=== PATIENT | female | born 1935 | race Caucasian/White ===

== ENCOUNTER → 2016-04-28 | Outpatient (CLI) | payer MEDICARE ==
[~2016-04-28] MED LIST: 3N1 COMMODE MC; ASPI-781 PO; GINKGO PO; MULTI VITAMIN PO; OXY5 PO; ULT50 PO; VITAMIN B12 1000 MCG PO; VITAMIN D3 PO; WALK1EAC23 MC
--- NOTE | 2016-04-28 12:18 | RADRPT ---
PROCEDURE: XR left knee. CLINICAL INDICATION: Knee pain TECHNIQUE: AP weightbearing, PA weightbearing, lateral weight bearing and sunrise views are availa ble for review. COMPARISON: None available FINDINGS: There is moderate to severe osteoarthrosis involving the lateral tibial femoral compartment and mosley llofemoral compartment. This is associated with joint space narrowing, subchondral sclerosis and ost eophytosis. There is otherwise normal mineralization, architecture and alignment. No fractures are identified. No osseous lesions are identified. The soft tissues are unremarkable. IMPRESSION: Moderate to severe osteoarthrosis involving the lateral tibial femoral compartment and patellofemora l compartment. RPTAT: HGDB .Kedar Mayberry MD, Date Time Electronically viewed and signed by .Kedar Mayberry MD, on 04/28/2016 12:18 .B/
--- NOTE | 2016-04-28 12:39 | RADRPT ---
PROCEDURE: XR bilateral hips. CLINICAL INDICATION: Hip pain TECHNIQUE: AP pelvis/AP and lateral views of the right and left hips available for review. COMPARISON: No prior studies are available for comparison. FINDINGS: There are bilateral total hip replacements. There is normal mineralization, architecture and alignment. There is no evidence of loosening of th e prosthesis. No fractures, dislocation or osseous lesions are identified. The joints are unremark able. There are normal soft tissues. IMPRESSION: Bilateral total hip replacements. Otherwise unremarkable examination. RPTAT: HGDB .Kedar Mayberry MD, MD Date Time Electronically viewed and signed by .Kedar Mayberry MD, MD on 04/28/2016 12:39 .B/
== END | disposition home or self-care (01) ==
LOC: HKI 10:44
PROVIDERS: ATTEND Orthopaedic Surgery
DX: M17.12 Unilateral primary osteoarthritis, left knee (principal); M21.062 Valgus deformity, not elsewhere classified, left knee; Z96.653 Presence of artificial knee joint, bilateral
CPT/HCPCS: 73523; 73564; G0463

== ENCOUNTER → 2016-06-04 | Outpatient (CLI) | payer MEDICARE ==
[~2016-06-04] MED LIST changes: -OXY5 PO; +OXYC-481 PO; +TRAM50TA2 PO; -ULT50 PO
--- NOTE | 2016-06-06 10:18 | RADRPT ---
PROCEDURE: Limited x-ray of both lower extremities. CLINICAL INDICATION: Bilateral leg pain. TECHNIQUE: Single frontal view of both lower extremities was obtained from the hips to the calves. COMPARISON: Left knee radiographs dated 04/28/2016. Bilateral hip radiographs dated 04/28/2016. FINDINGS: There are bilateral total hip arthroplasties. The right knee is grossly normal. There are severe d egenerative changes of the left knee with valgus deformity. IMPRESSION: 1. Bilateral total hip arthroplasties. 2. Severe degenerative changes of the left knee with valgus deformity. RPTAT: QQ .Julius Malave MD, MD Date Time Electronically viewed and signed by .Julius Malave MD, MD on 06/06/2016 10:18 .R/
== END | disposition home or self-care (01) ==
LOC: HKI 10:31
PROVIDERS: ATTEND Orthopaedic Surgery
DX: Z01.818 Encounter for other preprocedural examination (principal); M17.12 Unilateral primary osteoarthritis, left knee; Z96.643 Presence of artificial hip joint, bilateral
CPT/HCPCS: 77073; G0463

== ENCOUNTER 2016-06-10 07:31 | Inpatient (IN) | payer MEDICARE ==
[2016-06-09 14:32] VITALS: BMI 19.5
--- NOTE | 2016-06-09 17:15 | PREOPHP ---
DATE OF ADMISSION: 06/10/2016 STAFF SURGEON: Homer Sinclair MD CHIEF COMPLAINT: Left knee pain. HISTORY OF PRESENT ILLNESS: The patient has been having pain in her left knee for many months. She has been taking Tylenol and other medications for this which help somewhat, but did not alleviate t he pain. The patient is unable to do her normal activities including walking any length. She has be en seen by orthopedics and told that she has bone on bone and is planning on having a left knee repl acement. The patient has had multiple surgeries in the past with no problems, but there is a family history of malignant hypertension in a grandchild and in a niece. The patient has never had any pr oblems herself. The patient is otherwise doing well. PAST MEDICAL HISTORY: Positive for left breast cancer treated with lumpectomy and radiation. Histo ry of COPD, and a history of blood clot postop hip replacement. PAST SURGICAL HISTORY: Positive for left lumpectomy, tonsillectomy, breast biopsy benign twice, rig ht hip replacement 2014, left hip replacement 2015. ALLERGIES: NO TRUE ALLERGIES, BUT IBUPROFEN CAUSES DEPRESSION AND NAPROSYN CAUSES GI UPSET. HABITS: The patient quit tobacco 2004. She has 2 shots of Vodka per day. GYNECOLOGIC HISTORY: The patient is 2 para 2 and is menopausal. MEDICATIONS: 1. Vitamin D 3000. 2. B12 1000 twice a day. 3. Aspirin 1 daily. NOTE: All these have been stopped in preparation for surgery. FAMILY HISTORY: Positive for father dying with stroke at 87. Mother of heart failure at 94. One brother had a myelofibrosis and at 78. There is as noted above a grandchild and a niece wi th malignant hyperthermia related to surgery. REVIEW OF SYSTEMS: The patient denies fevers, chills, sweats, ear pain, eye pain, sore throat, diff iculty swallowing, headaches, double vision, slurred speech, confusion, bruising or bleeding problem s, hoarseness, balance problems, chest pain, cough, orthopnea, PND, ankle swelling, stomach pain, na usea, vomiting, diarrhea, blood in the stools, black tarry stools, change in bowel habits, vaginal s potting or bleeding, anxiety, depression, suicidal thoughts, swollen joints, fatigue and muscle pain . PHYSICAL EXAMINATION: VITAL SIGNS: Weight 139 pounds, blood pressure 130/80, pulse 66, respirations 12, height 68.5 inches . HEENT: Oral cavity without erythema. NECK: Supple, thyroid not enlarged, nontender, no JVD or carotid bruits. LUNGS: Clear to auscultation and percussion. BACK: Without tenderness to palpation along the spine at the costovertebral angle. HEART: Regular rate and rhythm, no murmurs, no S3, no S4. BREAST: Without masses or axillary adenopathy with some radiation changes in the left breast. ABDOMEN: Bowel sounds present. Liver not enlarged, spleen appreciated, no masses detected. EXTREMITIES: Without pretibial edema. NEUROLOGIC: Cranial nerves III, IV, V, VII, XI and XII intact. Pulses have +2 carotid, +2 , +2 dorsal bilaterally. The patient is alert and coherent. Her gait is normal. There are palpable crackles in both knees. ASSESSMENT: The patient is clear for surgery. NOTE: The patient has had a history of blood clot following hip surgery and there is a family histo ry of malignant hyperthermia in 2 blood relatives. PLAN: 1. Blood work, EKG and chest x-ray. 2. The patient has stopped all medications in preparations for surgery. Dr. Lobito Otoole dictating for Dr. Sinclair Dictated By: HOMER DECKER/LUIS Conf#: [id number] DID#: [id number]
[~2016-06-10] VITALS: Ht 175.3 cm; Wt 63.5 kg
[2016-06-10] VITALS (28 sets, daily range): BP systolic 89–116; BP diastolic 47–67; PULSE 60–100; RESP 9–19; Ht 175.3 cm; Wt 63.5 kg
[~2016-06-10 07:31] MED LIST changes: +CEFAZOLIN 1 GM INJ ONE; +EPHEDrine SULFATE 50 MG/5 ML SYG ONE
[2016-06-10] MEDS ORDERED: traMADOL 50 MG TAB X 1 DOSE PO ONE (09:00)
[2016-06-10] MEDS: LACTATED RINGER'S 1,000 ML IV SCH ×4 (09:00→21:53)
[2016-06-10] MEDS ORDERED: CELECOXIB 400 MG PO X1 DOSE PO ONE (09:00)
[2016-06-10] MEDS ORDERED: oxyCODONE (CR) 10 MG TAB [oxyCONTIN] X1 DOSE PO ONE (09:00)
[2016-06-10] MEDS ORDERED: PREGABALIN 300 MG PO X1 PO ONE (09:00)
[2016-06-10] MEDS ORDERED: TRANEXAMIC ACID 600 MG in SOD CHLORIDE 0.9% 94 ML IV ONE (09:00)
[2016-06-10] MEDS ORDERED: CEFAZOLIN 2GM/50 ML (PMX) 50 ML X1 BEFORE INCISION IVPB ONE (09:00)
[2016-06-10] MEDS ORDERED: BUPIVACAINE LIPOSOME/PF 266 MG/20 ML VIAL INFIL SCH (10:30)
[2016-06-10] MEDS ORDERED: TRANEXAMIC ACID 600 MG in SOD CHLORIDE 0.9% 100 ML IVPB SCH (10:30)
[2016-06-10] MEDS ORDERED: EXPAREL NOTE (BUPIVICAINE LIPOSOMAL) XX SCH (10:30)
--- NOTE | 2016-06-10 10:30 | HPN ---
Date/Time of Note Date/Time of Note DATE: 06/10/16 TIME: 10:29 Interval H&P Admission Note Pt. seen H&P reviewed: No system changes No change from H&P dated 05/27/[address] Lobito ARGUELLES,ZULEMA Maldonado MD Jun 10, 2016 10:30
[2016-06-10] MEDS ORDERED: ONDANSETRON 4 MG INJ ONE (10:52)
[2016-06-10] MEDS ORDERED: DEXAMETHASONE 4 MG/ML 1 ML INJ ONE (10:52)
[2016-06-10] MEDS ORDERED: PROPOFOL 100 ML ONE (10:52)
[2016-06-10] MEDS ORDERED: MIDAZOLAM 1 MG/ML 2 ML INJ ONE (10:52)
[2016-06-10] MEDS ORDERED: METOCLOPRAMIDE 10 MG INJ ONE (10:52)
[2016-06-10] MEDS ORDERED: FENTAnyl 50 MCG/ML VIAL ONE (11:15)
[2016-06-10] MEDS ORDERED: POLYMYXIN B 500000 UNIT INJ ONE (11:37)
[2016-06-10] MEDS ORDERED: SODIUM CL BACTERIOSTATIC 30 ML INJ ONE (11:37)
[2016-06-10] MEDS ORDERED: VANCOMYCIN 1 GM INJ ONE (11:37)
[2016-06-10] MEDS: PAIN COCKTAIL-CEFUROXIME IRR SCH ×7 (12:36)
[2016-06-10] MEDS ORDERED: PROPOFOL 20 ML ONE (12:57)
[2016-06-10] MEDS ORDERED: METOCLOPRAMIDE 10 MG INJ IV PRN (13:00)
[2016-06-10] MEDS ORDERED: HYDROmorphONE (0.2 MG/ML) 10ML SYG IV PRN ×3 (13:00)
[2016-06-10] MEDS ORDERED: ONDANSETRON 4 MG INJ IV PRN ×2 (13:00→14:00)
[2016-06-10] MEDS ORDERED: MEPERIDINE 25 MG INJ IV PRN (13:00)
[2016-06-10] MEDS ORDERED: DIPHENHYDRAMINE 50 MG INJ IV PRN (13:00)
--- NOTE | 2016-06-10 13:59 | OPPN ---
Date/Time of Note Date/Time of Note DATE: 06/10/16 TIME: 13:58 Operative/Procedure Note Dictation # [id number] Pre-Operative Diagnosis Left Knee OA Post-Operative Diagnosis Same Procedure Left TKA Surgeon: ZULEMA ARGUELLES MD Bodybuilder: ZANE GALLO PA-C Anesthesiologist: RANDY ASHLEY MD Findings Severe OA Blood Usage/Administration None Implants/Grafts Depuy Attune TKA Estimated blood loss: 50 - 100 ml's Drains Hemovac x 1 Specimens Bone and soft tissue Complications: None Anesthesia type: spinal ZULEMA ARGUELLES MD Jun 10, 2016 13:59
[2016-06-10] MEDS ORDERED: MAGNESIUM HYDROXIDE 30ML CUP PO PRN (14:00)
[2016-06-10] MEDS ORDERED: BISACODYL 10 MG SUPP PR PRN (14:00)
[2016-06-10] MEDS ORDERED: NA PHOSPHATE/BIPHOS 133 ML ENEMA PR PRN (14:00)
[2016-06-10] MEDS ORDERED: DIPHENHYDRAMINE 25 MG CAP PO PRN (14:00)
[2016-06-10] MEDS ORDERED: HYDROmorphONE 1 MG/ML SYG IV PRN (14:00)
[2016-06-10] MEDS ORDERED: NACL 0.9% 3 ML SYG IV SCH (14:00)
[2016-06-10] MEDS ORDERED: oxyCODONE 5 MG TAB PO PRN ×2 (14:00)
[2016-06-10 14:14] LABS: HEMATOCRIT 35.4 % (37.0-47.0)
--- NOTE | 2016-06-10 14:15 | OPR ---
DATE OF OPERATION: 06/10/2016 PREOPERATIVE DIAGNOSIS: Left knee osteoarthritis. POSTOPERATIVE DIAGNOSIS: Left knee osteoarthritis. OPERATION PERFORMED: Left total knee arthroplasty. SURGEON: Homer Sinclair MD QA AUDITOR: BRAIN Blake COMPONENTS USED: DePuy Attune size 6 narrow femoral component, size 6 tibial base plate, 7-mm polyethylene insert, and a 35 patellar button. ANESTHESIA: Spinal plus general endotracheal intubation, plus periarticular injection. ANESTHESIOLOGIST: Dr. Floyd. TOURNIQUET TIME: 67 minutes. ESTIMATED BLOOD LOSS: 50 mL. INTRAVENOUS FLUIDS: 2 liters crystalloid. SPECIMENS: Bone and soft tissue. DRAINS: Hemovac x1. COMPLICATIONS: None. DISPOSITION: The patient tolerated the procedure well and was taken to the recovery room in stable condition. INDICATIONS: The patient is a 80-year-old woman who has had progressive worsening pain in the left knee with radiographic evidence of severe osteoarthritis. She has failed nonsurgical means of treatment to control her pain including activity modifications, pain medications, intra-articular injections, and ambulatory assist devices. Despite these measures, she has had worsening pain, and I felt she would benefit from a total knee arthroplasty. The risks, benefits, and alternatives of the procedure were explained in detail to the patient. I explained the risks of the surgery to include but not be limited to, bleeding and possible need for blood transfusion; infection; pain; stiffness; neurovascular injury with possible numbness, weakness, and/or paralysis anywhere from the knee down to the toes; fracture; instability; dislocation; wear and/or loosening of the prosthesis and possible need for future revision; blood clots; pulmonary embolism; and anesthetic complications such as heart attack, stroke, GI bleed, pneumonia, and/or . Ample time was allowed for the patient to ask questions, all of which were addressed and answered. The patient understood the risks involved and wished to proceed. Informed consent was signed prior to the procedure. APPROACH: Median parapatellar arthrotomy. cut down consent was signed prior to the procedure. Valgus cut was 5 degrees. The extension gap was checked and accommodated the 7-mm spacer block. The flexion gap was checked and accommodated the 7-mm spacer block. The patella was cut from 20 mm down to 13 mm and sized. PROCEDURE: The patient's left knee was initialed with a marking pen in the preoperative area to identify the correct operative site. The patient was brought to the [facility] where a spinal anesthetic was administered. The patient was then anesthetized and intubated. A Luz catheter was placed. A timeout was performed to confirm that the left leg was the correct operative site. The patient was given 2 g of Ancef within one hour prior to the procedure. A tourniquet was placed on the operative proximal thigh. The operative knee and lower extremity were prepped and draped in the usual sterile fashion. The operative lower extremity was elevated and exsanguinated with an Esmarch tourniquet. The proximal thigh tourniquet was inflated to 300 mmHg. The knee was flexed. A midline incision was made and carried down through the subcutaneous tissue and fat with sharp dissection. Limited medial and lateral flaps were raised. A left approach was performed. Synovial fluid was normal in color and consistency. The patella was everted and the knee flexed. There were severe tricompartmental osteoarthritic changes noted. A medial release was performed at the joint line to the midcoronal plane. The ACL and PCL and remnants of the menisci were excised. The stepped drill was used to open up the femoral canal which was irrigated and sucked dry. The intramedullary guide christian was passed up the femur, and the distal cutting block was pinned into place for a 5-degree valgus cut, taking 10 mm of bone off distally. The oscillating saw was used to make the cut. The tibia was subluxed anteriorly. The tibial cutoff jig was placed over the center of the talus distally and over the junction of the medial and middle third of the tibial tubercle proximally. The guide was pinned into place and the oscillating saw was used to make the cut. The tibia was sized. The extension gap was checked and accommodated a 7-mm spacer block with the knee in full extension. There was no varus or valgus instability. At this point, the femur was sized with the posterior referencing guide. Two holes were drilled in 3 degrees of external rotation. The two holes were in line with the transepicondylar axis, perpendicular to [place]'s line, and in line with the tibial cutoff jig brought up with the knee flexed 90 degrees and tensed with 2 lamina spreaders, suggesting the femoral rotation was correct. The four-in-one cutting block was pinned into place. The anterior and posterior cuts and chamfer cuts were made with the oscillating saw. The flexion gap was checked and accommodated the 7-mm spacer block at 90 degrees. There was no varus or valgus instability, suggesting the flexion and extension gaps were now equal. The central box was cut out on the femur. The tibia was drilled and punched in proper rotation. Trial components were placed into position with a trial insert. The patella was cut down to 7 mm and sized. Three holes were drilled and the trial button placed in position. With all the trials now in place, the knee was taken through range of motion and came to full extension as evidenced by the fact that with the foot on my abdomen and axial loading, there was no tendency for the knee to flex. The knee was able to be flexed to 125 degrees with good patellar tracking with no lateral tilt or subluxation. At this point, I was satisfied with the overall range of motion, stability, and patellar tracking. The trials were removed. The real components were opened. Two bags of cement were mixed, one with and one without premixed antibiotic. The knee was irrigated with antibiotic saline and sucked dry. Once the cement was in a doughy stage, the real components were cemented into place. The knee was held in full extension, and the patellar component was held with a patellar clamp. All excess cement was removed with curettes. As the cement was hardening, the synovial/capsular layer was infiltrated with a mixture of 150 mg of 0.5% Bupivacaine, 8 mg of Duramorph, 300 mcg of epinephrine, 30 mg of Toradol, 100 mcg of clonidine, 750 mg of cefuroxime and 86 mL of normal saline, followed by an injection of 266 mg of liposomal Bupivacaine. A Hemovac drain was placed in the deep portion of the wound and brought out the anterolateral thigh. Once the cement was completely hardened, the trial liner was removed, and the real insert was opened. The tourniquet was let down, and there was good hemostasis. The knee was then irrigated with a mixture of Betadine/saline and then antibiotic saline with pulsatile lavage. The real insert was impacted into the tibia and reduced onto to the femur. The arthrotomy was closed with a few interrupted #1 Ethibond in a figure-of- eight fashion, and then closed in a watertight fashion with a running #2 Stratafix suture. Knee flexion was checked against gravity and came to 125 degrees. The subcutaneous layer was irrigated and closed with 2-0 Stratafix, and then 3-0 Stratafix and then Prineo Dermabond on the skin. The wound was covered with an occlusive dressing, and secured with cast padding and a bias dressing. The drain was secured with 3-0 nylon. The sponge and needle counts were correct at the end of the case. The patient was then awakened, extubated, and taken to the recovery room in stable condition. Dictated By: HOMER DECKER/NTS Conf#: [id number] DID#: [id number] MTDD
--- NOTE | 2016-06-10 14:19 | RADRPT ---
PROCEDURE: XR left knee. CLINICAL INDICATION: Knee pain. TECHNIQUE: AP and lateral views are available for review. COMPARISON: No comparison available FINDINGS: There is a postoperative total knee replacement. There is no evidence of loosening of the prosthesis . The osseous structures are normal in mineralization, architecture and alignment No acute fracture or dislocation is seen.No osseous lesions are identified. There are postoperative soft tissue olguin es. A drain is in place . IMPRESSION: Unremarkable postoperative total knee replacement. Postoperative soft tissue changes RPTAT: HGDB .Kedar Mayberry MD, MD Date Time Electronically viewed and signed by .Kedar Mayberry MD, on 06/10/2016 14:18 .B/
[2016-06-10 14:23] LABS: CREATININE 0.63 mg/dl (0.44-1.00); POTASSIUM 4.7 mmol/L (3.5-5.1)
[2016-06-10 14:24] LABS: CALCIUM 8.9 mg/dl (8.4-10.2)
--- NOTE | 2016-06-10 14:25 | PN ---
Date/Time of Note Date/Time of Note DATE: 06/10/16 TIME: 14:23 Assessment/Plan Lines/Catheters IV Catheter Type (from Nrsg): Peripheral IV Assessment/Plan Assessment/Plan Stable in PACU, s/p left TKA -cont abx -pain meds -Coumadin 2.5mg at 1700 ONCE today -SCDs for DVT prophylaxis -OOB with PT -monitor drain -check AM labs including INR -d/c ho in AM XR of the left knee shows good alignment with no evidence of fracture or dislocation Subjective 24 Hr Interval Summary Stable in PACU. Moving all extremities. Denies any pain. Mildly lethargic from anesthesia. Exam/Review of Systems Vital Signs Vitals Vital Signs Date Time Temp Pulse Resp B/P Pulse Ox O2 Delivery O2 Flow Rate FiO2 06/10/16 13:53 98.1 06/10/16 13:51 86 16 102/58 96 Nasal Cannula Exam Free Text/Dictation Dressing dry Incision clean, dry, and intact without redness or drainage Thigh soft 5/5 Quadriceps, Tibialis Anterior, EHL, Gastroc, Soleus, Peroneals Normal sensation Palpable DT/PT, CR <2 sec No distal edema Results Result Diagram: 06/10/16 1402 ZANE GALLO PA-C Jun 10, 2016 14:25
[2016-06-10] MEDS: CEFAZOLIN 2 GM/50 ML (PMX) 50 ML IVPB SCH ×2 (14:26→22:06)
--- NOTE | 2016-06-10 16:48 | CONS ---
DATE OF ADMISSION: 06/10/2016 DATE OF CONSULTATION: 06/10/[address] Sinclair: Thank you very much for allowing me to evaluate the above patient, who just underwent left knee repl acement. HISTORICAL EVENTS: Because of progressive pain involving her left knee, the patient sought help fro avi matthews, and she elected to proceed with your recommended surgery. Postoperatively, on the orthopedic floor, she is comfortable without cough, wheezing, shortness of breath, nausea, vomiting, abdominal or chest pain. PAST MEDICAL HISTORY: Includes: 1. Breast cancer treated with radiation and lumpectomy. 2. History of COPD. 3. Right hip replacement and left hip replacement in 2014 and 2015, respectively. 4. History of a "blood clot" postop hip replacement. ALLERGIES OR INTOLERANCES: Include: 1. Ibuprofen. 2. Naprosyn. SOCIAL: She does drink 2 shots of vodka per day. MEDICATIONS: Vitamin D3 at 3000 per day, B12 at 1000 mcg twice a day, aspirin 81 per day. FAMILY HISTORY: Positive for heart failure, myelofibrosis, history of malignant hyperthermia. PHYSICAL EXAMINATION: GENERAL: [place] female, in no acute distress. VITAL SIGNS: BP 122/80, pulse 70, respirations are 20, she was afebrile. EYES: Extraocular muscles were full. NOSE, MOUTH, AND THROAT: Normal. NECK: Supple. There was no jugular venous distention, thyroid enlargement, or adenopathy. Carotid s 2+. LUNGS: Clear. HEART: Rhythm regular, no murmur. No third or fourth sound. ABDOMEN: Nontender. Liver and spleen were not palpable. No masses or tenderness were noted. EXTREMITIES: No edema, no calf tenderness. NEUROLOGIC: No lateralizing motor weakness. IMPRESSION: 1. Postop left knee replacement, stable. 2. History of deep venous thrombosis, agree with your beginning Coumadin. 3. Vitamin D deficiency. Will continue Vitamin D3 as she has been taking at home. Dictated By: GINA RONQUILLO MD MR/NTS Conf#: [id number] DID#: [id number]
[2016-06-10] MEDS ORDERED: TRANEXAMIC ACID IVPB ONE ×2 (17:00→20:00)
[2016-06-10] MEDS ORDERED: WARFARIN 2.5 MG TAB PO ONE (17:00)
[2016-06-10] MEDS ORDERED: SOD CHLORIDE 0.9% IVPB ONE ×2 (17:00→20:00)
[2016-06-10] MEDS: PANTOPRAZOLE (EC) 40 MG TAB PO SCH (17:30)
[2016-06-10] MEDS: traMADol 50 MG TAB PO SCH (17:31)
[2016-06-10] MEDS: ACETAMINOPHEN 1000MG/100ML IV 100 ML IVPB SCH (18:16)
[2016-06-10] MEDS: PREGABALIN 25 MG CAP PO SCH (21:07)
[2016-06-10] MEDS: DOCUSATE SODIUM 100 MG CAP PO SCH (21:07)
[2016-06-11] VITALS: BP 96/51; PULSE 63; RESP 18
[2016-06-11] MEDS: ACETAMINOPHEN 1000MG/100ML IV 100 ML IVPB SCH ×3 (00:31→12:07)
[2016-06-11] MEDS: traMADol 50 MG TAB PO SCH ×5 (00:32→23:51)
[2016-06-11] MEDS ORDERED: TRANEXAMIC ACID IVPB ONE (02:00)
[2016-06-11] MEDS ORDERED: SOD CHLORIDE 0.9% IVPB ONE (02:00)
[2016-06-11] MEDS: LACTATED RINGER'S 1,000 ML IV SCH ×5 (04:57→21:53)
[2016-06-11 05:37] LABS: HEMATOCRIT 32.5 % (37.0-47.0)
[2016-06-11 06:00] VITALS: BP 108/56; PULSE 64; RESP 18
[2016-06-11 06:01] LABS: INR 1.08; PT RATIO 1.1
[2016-06-11] MEDS: PANTOPRAZOLE (EC) 40 MG TAB PO SCH ×2 (06:10→17:54)
[2016-06-11 06:19] LABS: CREATININE 0.62 mg/dl (0.44-1.00)
[2016-06-11 06:20] LABS: CALCIUM 8.7 mg/dl (8.4-10.2)
[2016-06-11] MEDS: CEFAZOLIN 2 GM/50 ML (PMX) 50 ML IVPB SCH (06:43)
--- NOTE | 2016-06-11 07:41 | PDOCDIS ---
Discharge Instructions DIAGNOSIS Discharge Diagnosis: s/p left TKA CONDITION Patient Condition: Good HOME CARE INSTRUCTIONS: Diet Instructions: RegularSpecial Diet: avoid green leafy vegetables ACTIVITY: Activity Restrictions: Slowly Increase Activity Rest between Activity Avoid heavy lifting Do not operate Machinery Do not operate Power Tool Avoid Heavy Housework Keep Limb Elevated Bathing Restrictions: Shower FOLLOW UP/APPOINTMENTS Appointments follow up in the office on 06/21/16 OTHER ORDERS: Other Orders: Physical Therapy: Three times per week at home x 3 weeks Daily in Rehab/SNF (if applicable) WB STATUS: WBAT 1. Strengthening exercises for both upper and un-operated lower extremities. 2. Gait training with front wheeled walker 3. Active range of motion exercises to operative knee. 4. When not working on knee range of motion exercises, distal towel roll under operative ankle/distal calf to promote full extension. 5. DO NOT PUT ANYTHING BEHIND OPERATIVE KNEE!!! 6. Quadriceps and hamstring strengthening. 7. May switch to cane in contra lateral hand 6 weeks after surgery. 8. Physical Therapy can open case if nursing is not available. 9. Use Ice Machine as instructed from date of surgery while at rest 3X/day. 10. Patient requires mobile SCDs to reduce risk of developing DVT following TKA. Patient will use the mobile SCDs for 30 days postoperatively. Bathing assistance by home health aide twice weekly if Medicare patient. Occupational Therapy: Evaluation for assistive devices and ADL training. Wound Care: Keep incision dry & covered with Tegaderm until first visit with Dr. Sinclair Anticoagulation Orders: Adjusted Coumadin dose x 3 weeks from the date of surgery. Target INR 1.7-2.0. Prothrombin time & INR are done every Tuesday and for three weeks post- operatively. Please call and leave a message with Rae @ [phone] with results the same day before the close of business. The patient should not eat green leafy vegetables. Follow-up: Call for an appointment with Dr. Sinclair in 1 week after discharged from hospital at . DME Orders: FWW, 3-in-1 Commode, Polar ice machine, Mobile SCDs ZANE GALLO PA-C Jun 11, 2016 07:41
[2016-06-11] MEDS ORDERED: LYRI25 PO (07:43)
[2016-06-11 07:55] VITALS: BP 104/58; RESP 18
--- NOTE | 2016-06-11 08:16 | PN ---
Date/Time of Note Date/Time of Note DATE: 06/11/16 TIME: 08:14 Assessment/Plan Lines/Catheters IV Catheter Type (from Nrsg): Peripheral IV Luz in Place (from Nrsg): Yes Assessment/Plan Assessment/Plan Stable POD #1, s/p left TKA -d/c abx -pain meds -coumadin 2.5mg at 1700 TODAY -SCDs for DVT prophylaxis -check AM labs including INR -OOB with PT -d/c planning. Possible discharge home tomorrow Subjective 24 Hr Interval Summary Doing well. No acute overnight events. Denies any pain. Did not start PT yesterday. VSS, afebrile. Exam/Review of Systems Vital Signs Vitals Vital Signs Date Time Temp Pulse Resp B/P Pulse Ox O2 Delivery O2 Flow Rate FiO2 06/11/16 07:55 97.4 57 18 104/58 99 06/11/16 06:00 Room Air 2.0 Intake and Output 06/10/16 06/10/16 06/11/16 15:00 23:00 07:00 Intake Total 2000 ml 1956.4 ml 1536.4 ml Output Total 340 ml 800 ml 1230 ml Balance 1660 ml 1156.4 ml 306.4 ml Exam Free Text/Dictation Hemovac: 270cc Dressing dry Incision clean, dry, and intact without redness or drainage Thigh soft 5/5 Quadriceps, Tibialis Anterior, EHL, Gastroc, Soleus, Peroneals Normal sensation Palpable DT/PT, CR <2 sec No distal edema Results Result Diagram: 06/11/16 0455 06/11/16 0455 ZANE GALLO PA-C Jun 11, 2016 08:16
--- NOTE | 2016-06-11 08:43 | CONS ---
Date/Time of Note Date/Time of Note DATE: 06/11/16 TIME: 08:42 Assessment/Plan Assessment/Plan Additional Assessment/Plan 1. Postop left knee replacement, stable. 2. History of deep venous thrombosis, receiving coumadin 3. Vitamin D deficiency, D3 continued Consultation Date/Type/Reason Admit Date/Time Jun 10, 2016 at 07:31 Initial Consult Date Detailed Summary Respiratory: No cough, No shortness of breath Cardiovascular: No chest pain Gastrointestinal: no complaints Genitourinary: no complaints Musculoskeletal: bone/joint pain (mild left knee discomfort) Exam/Review of Systems Vital Signs Vitals Vital Signs Date Time Temp Pulse Resp B/P Pulse Ox O2 Delivery O2 Flow Rate FiO2 06/11/16 07:55 97.4 57 18 104/58 99 06/11/16 06:00 Room Air 2.0 Intake and Output 06/10/16 06/10/16 06/11/16 15:00 23:00 07:00 Intake Total 2000 ml 1956.4 ml 1536.4 ml Output Total 340 ml 800 ml 1230 ml Balance 1660 ml 1156.4 ml 306.4 ml Exam Neck: No jvd Respiratory: clear to auscultation Cardiovascular: regular rate and rhythm Gastrointestinal: soft Extremities: No edema (and no calf tend bilat) Results Result Diagram: 06/11/16 0455 06/11/16 0455 Results 24 hrs Laboratory Tests Test 06/10/16 14:02 06/11/16 04:55 Anion Gap 13 14 Blood Urea Nitrogen 14 16 Calcium Level 8.9 8.7 Carbon Dioxide Level 26 27 Chloride Level 104 105 Creatinine 0.63 0.62 Glucose Level 147 117 Hematocrit 35.4 #L 32.5 L Hemoglobin 12.0 # 11.0 L Potassium Level 4.7 5.0 Sodium Level 138 141 INR International Normalized Ratio 1.08 Prothrombin Time 14.0 Prothrombin Time Ratio 1.1 Medications Medications Current Medications Lactated Ringer's (Lr) 1,000 ml @ 100 mls/hr Q10H IV ; Start 06/10/16 at 09:00 Bupivacaine Liposome (Exparel 266 Mg/ 20 ml Vial) 266 mg INTRA-OP INFIL Last administered on 06/10/16t 12:36; Admin Dose 266 MG; Start 06/10/16 at 10:30; Stop 06/14/16 at 10:29 Miscellaneous Information 1 ea 1 ea NOTE XX ; Start 06/10/16 at 10:30; Stop at 10:29 Lactated Ringer's (Lr) 1,000 ml @ 125 mls/hr Q8H IV Last administered on 04:57; Admin Dose 125 MLS/HR; Start 06/10/16 at 13:53 Celecoxib 200 mg 200 mg DAILY PO ; Start 06/11/16 at 09:00 Acetaminophen (Ofirmev 1000mg/ 100ml Iv) 100 ml @ 400 mls/hr Q6 IVPB Last administered on 06/11/16 06:10; Admin Dose 400 MLS/HR; Start 06/10/16 at 18:00 ; Stop 06/11/16 at 17:59 Tramadol HCl (Ultram) 50 mg Q6 PO Last administered on 06/11/16 06:11; Admin Dose 50 MG; Start 06/10/16 at 18:00; Stop 06/13/16 at 17:59 Oxycodone HCl (Roxicodone) 5 mg Q4H PRN PO PAIN LEVEL 1-3; Start 06/10/16 at 14 :00 Oxycodone HCl (Roxicodone) 10 mg Q4H PRN PO PAIN LEVEL 4-7; Start 06/10/16 at 14:00 Hydromorphone HCl (Dilaudid) 1 mg Q3H PRN IV PAIN LEVEL 8-10; Start 06/10/16 at 14:00 Ondansetron HCl (Zofran Inj) 4 mg Q6H PRN IV NAUSEA AND/OR VOMITING; Start at 14:00 Bisacodyl (Dulcolax Supp) 10 mg Q12H PRN [place] CONSTIPATION; Start 06/10/16 at 14: 00 Magnesium Hydroxide (Milk Of Mag) 30 ml BID PRN PO CONSTIPATION; Start at 14:00 Sodium Biphosphate/ Sodium Phosphate (Fleet Enema) 133 ml DAILY PRN [place] CONSTIPATION; Start 06/10/16 at 14:00 Docusate Sodium (Colace) 100 mg BID PO Last administered on 06/10/16 21:07; Admin Dose 100 MG; Start 06/10/16 at 21:00 Diphenhydramine HCl (Benadryl) 25 mg Q6H PRN PO PRURITUS; Start 06/10/16 at 14: 00 Pantoprazole (Protonix Tab) 40 mg BID@18 PO Last administered on 06/11/16 06:10; Admin Dose 40 MG; Start 06/10/16 at 18:00 Pregabalin (Lyrica) 50 mg BID PO Last administered on 06/10/16 21:07; Admin Dose 50 MG; Start 06/10/16 at 21:00 Cholecalciferol (Vitamin D) 3,000 unit DAILY PO ; Start 06/11/16 at 09:00 Cyanocobalamin (Vitamin B12) 1,000 mcg DAILY PO ; Start 06/11/16 at 09:00 Warfarin Sodium (Coumadin) 2.5 mg 17 PO ; Start 06/11/16 at 17:00; Stop at 23:00 GINA RONQUILLO MD Jun 11, 2016 08:43
[2016-06-11] MEDS: CELECOXIB 200 MG CAP PO SCH (08:56)
[2016-06-11] MEDS: PREGABALIN 25 MG CAP PO SCH ×2 (08:57→21:04)
[2016-06-11] MEDS: DOCUSATE SODIUM 100 MG CAP PO SCH ×2 (08:57→21:04)
[2016-06-11] MEDS: CYANOCOBALAMIN 500 MCG TAB PO SCH (08:57)
[2016-06-11] MEDS: CHOLECALCIFEROL 1,000 UNIT TAB PO SCH (08:58)
[2016-06-11 09:13] LABS: ADD UMIC NO; URINE BILIRUBIN (Dip) NEGATIVE (NEGATIVE); URINE BLOOD (Dip) NEGATIVE (NEGATIVE); URINE COLOR LT. YELLOW (YELLOW); URINE GLUCOSE (Dip) NEGATIVE (NEGATIVE); URINE KETONES (Dip) NEGATIVE (NEGATIVE); URINE LEUKOCYTE ESTERASE (Dip) NEGATIVE (NEGATIVE); URINE NITRITE (Dip) NEGATIVE (NEGATIVE); URINE TOTAL PROTEIN (Dip) NEGATIVE (NEGATIVE); URINE UROBILINOGEN (Dip) 0.2 E.U./dL (0.1-1.0)
--- NOTE | 2016-06-11 12:58 | PN ---
Date/Time of Note Date/Time of Note DATE: 06/11/16 TIME: 12:56 Assessment/Plan VTE Prophylaxis VTE Prophylaxis Intervention: SCD's Lines/Catheters IV Catheter Type (from Nrsg): Peripheral IV Urinary Cath still in place: Yes Subjective 24 Hr Interval Summary Free Text/Dictation Anesthesia note: A 80 year female s/p left knee replacemnt POD #1 under TIVA and spinal doing well. no N/V, headache, pain is controlled. no infection or inflammation at back Exam/Review of Systems Vital Signs Vitals Vital Signs Date Time Temp Pulse Resp B/P Pulse Ox O2 Delivery O2 Flow Rate FiO2 06/11/16 07:55 97.4 57 18 104/58 99 06/11/16 06:00 Room Air 2.0 Intake and Output 06/10/16 06/10/16 06/11/16 14:59 22:59 06:59 Intake Total 2000 ml 1956.4 ml 1536.4 ml Output Total 340 ml 800 ml 1230 ml Balance 1660 ml 1156.4 ml 306.4 ml Results Result Diagram: 06/11/16 0455 06/11/16 0455 Results 24 hrs Laboratory Tests Test 06/10/16 14:02 06/11/16 04:55 06/11/16 05:30 Anion Gap 13 14 Blood Urea Nitrogen 14 16 Calcium Level 8.9 8.7 Carbon Dioxide Level 26 27 Chloride Level 104 105 Creatinine 0.63 0.62 Glucose Level 147 117 Hematocrit 35.4 #L 32.5 L Hemoglobin 12.0 # 11.0 L Potassium Level 4.7 5.0 Sodium Level 138 141 INR International Normalized Ratio 1.08 Prothrombin Time 14.0 Prothrombin Time Ratio 1.1 Urine Bilirubin NEGATIVE Urine Clarity CLEAR Urine Color LT. YELLOW Urine Glucose NEGATIVE Urine Hemoglobin NEGATIVE Urine Ketones NEGATIVE Urine Leukocyte Esterase NEGATIVE Urine Nitrite NEGATIVE Urine Specific [place] 1.020 Urine Total Protein NEGATIVE Urine Urobilinogen 0.2 E.U./dL Urine pH 6.0 Medications Medications Current Medications Lactated Ringer's (Lr) 1,000 ml @ 100 mls/hr Q10H IV ; Start 06/10/16 at 09:00 Bupivacaine Liposome (Exparel 266 Mg/ 20 ml Vial) 266 mg INTRA-OP INFIL Last administered on 06/10/16t 12:36; Admin Dose 266 MG; Start 06/10/16 at 10:30; Stop 06/14/16 at 10:29 Miscellaneous Information 1 ea 1 ea NOTE XX ; Start 06/10/16 at 10:30; Stop at 10:29 Lactated Ringer's (Lr) 1,000 ml @ 125 mls/hr Q8H IV Last administered on 04:57; Admin Dose 125 MLS/HR; Start 06/10/16 at 13:53 Celecoxib 200 mg 200 mg DAILY PO Last administered on 06/11/16 08:56; Admin Dose 200 MG; Start 06/11/16 at 09:00 Acetaminophen (Ofirmev 1000mg/ 100ml Iv) 100 ml @ 400 mls/hr Q6 IVPB Last administered on 06/11/16 12:07; Admin Dose 400 MLS/HR; Start 06/10/16 at 18:00 ; Stop 06/11/16 at 17:59 Tramadol HCl (Ultram) 50 mg Q6 PO Last administered on 06/11/16 12:07; Admin Dose 50 MG; Start 06/10/16 at 18:00; Stop 06/13/16 at 17:59 Oxycodone HCl (Roxicodone) 5 mg Q4H PRN PO PAIN LEVEL 1-3; Start 06/10/16 at 14 :00 Oxycodone HCl (Roxicodone) 10 mg Q4H PRN PO PAIN LEVEL 4-7; Start 06/10/16 at 14:00 Hydromorphone HCl (Dilaudid) 1 mg Q3H PRN IV PAIN LEVEL 8-10; Start 06/10/16 at 14:00 Ondansetron HCl (Zofran Inj) 4 mg Q6H PRN IV NAUSEA AND/OR VOMITING; Start at 14:00 Bisacodyl (Dulcolax Supp) 10 mg Q12H PRN [place] CONSTIPATION; Start 06/10/16 at 14: 00 Magnesium Hydroxide (Milk Of Mag) 30 ml BID PRN PO CONSTIPATION; Start at 14:00 Sodium Biphosphate/ Sodium Phosphate (Fleet Enema) 133 ml DAILY PRN [place] CONSTIPATION; Start 06/10/16 at 14:00 Docusate Sodium (Colace) 100 mg BID PO Last administered on 06/11/16 08:57; Admin Dose 100 MG; Start 06/10/16 at 21:00 Diphenhydramine HCl (Benadryl) 25 mg Q6H PRN PO PRURITUS; Start 06/10/16 at 14: 00 Pantoprazole (Protonix Tab) 40 mg BID@06,18 PO Last administered on 06/11/16 06:10; Admin Dose 40 MG; Start 06/10/16 at 18:00 Pregabalin (Lyrica) 50 mg BID PO Last administered on 06/11/16 08:57; Admin Dose 50 MG; Start 06/10/16 at 21:00 Cholecalciferol (Vitamin D) 3,000 unit DAILY PO Last administered on 06/11/16 08:58; Admin Dose 3,000 UNIT; Start 06/11/16 at 09:00 Cyanocobalamin (Vitamin B12) 1,000 mcg DAILY PO Last administered on 06/11/16 08:57; Admin Dose 1,000 MCG; Start 06/11/16 at 09:00 Warfarin Sodium (Coumadin) 2.5 mg 17 PO ; Start 06/11/16 at 17:00; Stop at 23:00 RANDY ASHLEY MD Jun 11, 2016 12:58
[2016-06-11] MEDS ORDERED: WARFARIN 2.5 MG TAB PO SCH (17:00)
[2016-06-11 20:58] VITALS: BP 116/57; RESP 20
[2016-06-12] MEDS: LACTATED RINGER'S 1,000 ML IV SCH ×3 (01:00→11:00)
[2016-06-12 05:11] LABS: HEMATOCRIT 32.4 % (37.0-47.0)
[2016-06-12 05:14] LABS: INR 1.34; PROTIME 16.7 Sec (12.2-14.2); PT RATIO 1.3
[2016-06-12 05:21] LABS: POTASSIUM 4.5 mmol/L (3.5-5.1)
[2016-06-12 05:23] LABS: CREATININE 0.65 mg/dl (0.44-1.00)
[2016-06-12 05:24] LABS: CALCIUM 8.4 mg/dl (8.4-10.2)
[2016-06-12] MEDS: traMADol 50 MG TAB PO SCH ×2 (06:46→12:20)
[2016-06-12] MEDS: PANTOPRAZOLE (EC) 40 MG TAB PO SCH (06:46)
[2016-06-12 08:25] VITALS: BP 124/61; PULSE 85; RESP 16
[2016-06-12] MEDS: CELECOXIB 200 MG CAP PO SCH (08:29)
[2016-06-12] MEDS: DOCUSATE SODIUM 100 MG CAP PO SCH (08:29)
[2016-06-12] MEDS: CYANOCOBALAMIN 500 MCG TAB PO SCH (08:29)
[2016-06-12] MEDS: CHOLECALCIFEROL 1,000 UNIT TAB PO SCH (08:30)
[2016-06-12] MEDS: PREGABALIN 25 MG CAP PO SCH (08:30)
--- NOTE | 2016-06-12 10:58 | PN ---
Date/Time of Note Date/Time of Note DATE: 06/12/16 TIME: 10:57 Assessment/Plan Lines/Catheters IV Catheter Type (from Nrsg): Saline Lock Luz in Place (from Nrsg): Yes Assessment/Plan Assessment/Plan Stable POD #2, s/p left TKA -pain meds -coumadin 2mg NOW prior to d/c -OOB with PT -dressing changed -d/c home today -follow up in the office with Dr. Sinclair on 06/21/16 Subjective 24 Hr Interval Summary Doing well. No acute overnight events. Mild pain. Walked 250 feet with PT. States she wants to go home today. Exam/Review of Systems Vital Signs Vitals Vital Signs Date Time Temp Pulse Resp B/P Pulse Ox O2 Delivery O2 Flow Rate FiO2 06/12/16 08:25 99.4 85 16 124/61 98 Room Air 06/11/16 06:00 2.0 Intake and Output 06/11/16 06/11/16 06/12/16 15:00 23:00 07:00 Intake Total 150 ml 1750 ml 700 ml Output Total 900 ml Balance 150 ml 1750 ml -200 ml Exam Free Text/Dictation Dressing dry Incision clean, dry, and intact without redness or drainage Thigh soft 5/5 Quadriceps, Tibialis Anterior, EHL, Gastroc, Soleus, Peroneals Normal sensation Palpable DT/PT, CR <2 sec No distal edema Results Result Diagram: 06/12/1642906/12/16429 ZANE GALLO PA-C Jun 12, 2016 10:58
[2016-06-12] MEDS ORDERED: WARFARIN 2 MG TAB PO SCH (11:00)
--- NOTE | 2016-06-12 11:32 | CONS ---
Date/Time of Note Date/Time of Note DATE: 06/12/16 TIME: 11:30 Assessment/Plan Assessment/Plan Additional Assessment/Plan 1. Doing quite well post op left knee repalcement. 2. Can dc if ok with ortho and PT Consultation Date/Type/Reason Admit Date/Time Jun 10, 2016 at 07:31 Detailed Summary Respiratory: No cough, No shortness of breath Cardiovascular: No chest pain Gastrointestinal: no complaints Genitourinary: no complaints Musculoskeletal: bone/joint pain (mild left knee pain) Exam/Review of Systems Vital Signs Vitals Vital Signs Date Time Temp Pulse Resp B/P Pulse Ox O2 Delivery O2 Flow Rate FiO2 06/12/16 10:59 98.0 06/12/16 08:25 85 16 124/61 98 Room Air 06/11/16 06:00 2.0 Intake and Output 06/11/16 06/11/16 06/12/16 15:00 23:00 07:00 Intake Total 150 ml 1750 ml 700 ml Output Total 900 ml Balance 150 ml 1750 ml -200 ml Exam Neck: No jvd Respiratory: clear to auscultation Cardiovascular: regular rate and rhythm Gastrointestinal: soft Extremities: No edema (and no calf tend) Results Result Diagram: 06/12/16 0430 06/12/16 0430 Results 24 hrs Laboratory Tests Test 06/12/16 04:30 Anion Gap 13 Blood Urea Nitrogen 16 Calcium Level 8.4 Carbon Dioxide Level 29 Chloride Level 106 Creatinine 0.65 Glucose Level 92 Hematocrit 32.4 L Hemoglobin 11.0 L INR International Normalized Ratio 1.34 Potassium Level 4.5 Prothrombin Time 16.7 H Prothrombin Time Ratio 1.3 Sodium Level 143 Medications Medications Current Medications Lactated Ringer's (Lr) 1,000 ml @ 100 mls/hr Q10H IV ; Start 06/10/16 at 09:00 Bupivacaine Liposome (Exparel 266 Mg/ 20 ml Vial) 266 mg INTRA-OP INFIL Last administered on 06/10/16t 12:36; Admin Dose 266 MG; Start 06/10/16 at 10:30; Stop 06/14/16 at 10:29 Miscellaneous Information 1 ea 1 ea NOTE XX ; Start 06/10/16 at 10:30; Stop at 10:29 Lactated Ringer's (Lr) 1,000 ml @ 125 mls/hr Q8H IV Last administered on 04:57; Admin Dose 125 MLS/HR; Start 06/10/16 at 13:53 Celecoxib (Celebrex) 200 mg DAILY PO Last administered on 06/12/16 08:29; Admin Dose 200 MG; Start 06/11/16 at 09:00 Tramadol HCl (Ultram) 50 mg Q6 PO Last administered on 06/12/16 06:46; Admin Dose 50 MG; Start 06/10/16 at 18:00; Stop 06/13/16 at 17:59 Oxycodone HCl (Roxicodone) 5 mg Q4H PRN PO PAIN LEVEL 1-3; Start 06/10/16 at 14 :00 Oxycodone HCl (Roxicodone) 10 mg Q4H PRN PO PAIN LEVEL 4-7; Start 06/10/16 at 14:00 Hydromorphone HCl (Dilaudid) 1 mg Q3H PRN IV PAIN LEVEL 8-10; Start 06/10/16 at 14:00 Ondansetron HCl (Zofran Inj) 4 mg Q6H PRN IV NAUSEA AND/OR VOMITING; Start at 14:00 Bisacodyl (Dulcolax Supp) 10 mg Q12H PRN [place] CONSTIPATION; Start 06/10/16 at 14: 00 Magnesium Hydroxide (Milk Of Mag) 30 ml BID PRN PO CONSTIPATION; Start at 14:00 Sodium Biphosphate/ Sodium Phosphate (Fleet Enema) 133 ml DAILY PRN [place] CONSTIPATION; Start 06/10/16 at 14:00 Docusate Sodium (Colace) 100 mg BID PO Last administered on 06/12/16 08:29; Admin Dose 100 MG; Start 06/10/16 at 21:00 Diphenhydramine HCl (Benadryl) 25 mg Q6H PRN PO PRURITUS; Start 06/10/16 at 14: 00 Pantoprazole (Protonix Tab) 40 mg BID@,18 PO Last administered on 06/12/16 06:46; Admin Dose 40 MG; Start 06/10/16 at 18:00 Pregabalin (Lyrica) 50 mg BID PO Last administered on 06/12/16 08:30; Admin Dose 50 MG; Start 06/10/16 at 21:00 Cholecalciferol (Vitamin D) 3,000 unit DAILY PO Last administered on 06/12/16 08:30; Admin Dose 3,000 UNIT; Start 06/11/16 at 09:00 Cyanocobalamin (Vitamin B12) 1,000 mcg DAILY PO Last administered on 06/12/16 08:29; Admin Dose 1,000 MCG; Start 06/11/16 at 09:00 Warfarin Sodium (Coumadin) 2 mg NOW PO ; Start 06/12/16 at 11:00; Stop 06/12/16 at 23:00 GINA RONQUILLO MD Jun 12, 2016 11:32
--- NOTE | 2016-06-13 09:31 | DS ---
DATE OF ADMISSION: 06/10/2016 DATE OF DISCHARGE: 06/12/2016 CONDITION UPON DISCHARGE: Stable. ADMITTING DIAGNOSIS: Left knee advanced osteoarthritis. DISCHARGE DIAGNOSIS: Status post left total knee arthroplasty. PROCEDURE PERFORMED: Left total knee arthroplasty. HOSPITAL COURSE: This is a 80-year-old female who was seen in the clinic initially complaining of left knee pain. Images of the left knee showed advanced osteoarthritis, and it was thought she would benefit from a left total knee arthroplasty. On 06/10/2016, the patient was admitted and taken to the operating room where she underwent a left total knee arthroplasty. There were no intraoperative complications. The patient tolerated the procedure well. She was taken to the recovery room in stable condition. Pain was well controlled with oral pain medication. She was started on Coumadin and SCDs for DVT prophylaxis. She remained hemodynamically stable and neurovascularly intact throughout her hospital stay. On postoperative day 1, she began physical therapy and made good progress throughout her hospital stay. She was deemed clinically stable for discharge on postoperative day 2. Prior to discharge, the incision was inspected and noted to be clean, dry, and intact. Dressing changes were done prior to the patient going home. LABORATORY ANALYSIS: Upon discharge, hemoglobin was 11.0, hematocrit 32.4. Chemistry panel was within normal limits. INR on discharge was 1.34. DISCHARGE MEDICATIONS: 1. [place] 7.5/325 mg. 2. Tramadol 50 mg. 3. Lyrica 50 mg. 4. Coumadin 1 mg. 5. Coumadin 2 mg. Additionally, the patient is to resume all of her normal home medications. DISCHARGE INSTRUCTIONS: The patient will be discharged home in stable condition. She is to resume a normal diet. Activity includes weightbearing as tolerated on the left lower extremity. She is to continue physical therapy with home health. She will be discharged home on the medications noted above and was instructed to resume all of her normal home medications. She is to call the office or return to the emergency room for any concerns including increased redness, swelling, drainage, fever, or any concerns regarding the operation or site of incision. FOLLOWUP: The patient is to follow up in the office with Dr. Sinclair on 2016. Dictated By: AZNE ALONSO/LUIS Conf#: [id number] DID#: [id number] MTDD
== END 2016-06-12 12:45 | disposition home or self-care (01) | DRG 470 ==
LOC: REC 07:31 → MS1 15:35
PROVIDERS: ADMIT Orthopaedic Surgery; ATTEND Orthopaedic Surgery
PROC: 0SRD0J9 Replacement of Left Knee Joint with Synthetic Substitute, Cemented, Open Approach (ICD-10-PCS; principal; 2016-06-10 10:30)
DX: M17.12 Unilateral primary osteoarthritis, left knee (principal); J44.9 Chronic obstructive pulmonary disease, unspecified; E55.9 Vitamin D deficiency, unspecified; Z85.3 Personal history of malignant neoplasm of breast
CPT/HCPCS: 73560; 80048; 81003; 85014; 85018; 85610; 86850; 86900; 86901; 86920; 87081; 87086; 88304; 88311; 97116; 97162; 97166; 97530; Z7610; C1776; C9290; J0131; J0171; J0690; J0697; J0735; J1100; J1885; J2250; J2274; J2405; J2765; J3010; J3370; J7120

== ENCOUNTER → 2016-06-21 | Outpatient (CLI) | payer MEDICARE ==
[~2016-06-21] MED LIST changes: -3N1 COMMODE MC; -ASPI-781 PO; -CEFAZOLIN 1 GM INJ ONE; -EPHEDrine SULFATE 50 MG/5 ML SYG ONE; -GINKGO PO; +LYRI25 PO; -MULTI VITAMIN PO; -OXYC-481 PO; -TRAM50TA2 PO; -VITAMIN B12 1000 MCG PO; -VITAMIN D3 PO; -WALK1EAC23 MC
--- NOTE | 2016-06-21 11:05 | RADRPT ---
PROCEDURE: XR Bilateral Knees CLINICAL INDICATION: Pain TECHNIQUE: An AP and lateral view were submitted. COMPARISON: 06/10/2016 FINDINGS: Osseous structures: A well seated total left knee replacement is again evident. The osseous element s otherwise appear intact. Joint spaces: There is been interval development of a moderate joint effusion. Soft tissues: The drain is been removed that superficial marisol are again seen within the ventral s oft tissues. IMPRESSION: 1. Well seated total left knee replacement with the osseous elements again seen to be intact. 2. Interval development of a moderate joint effusion. 3. The surgical drain has been removed but the surgical marisol remain in place. Physician Mian Date Time Electronically viewed and signed by Physician Mian on 06/21/2016 11:05 /
--- NOTE | 2016-06-21 23:25 | HKNOTE ---
DATE OF SERVICE: 06/21/2016 INTERVAL HISTORY: The patient presents today for her first postoperative evaluation on her left juan carlos daly. She is now 10 days status post left total knee arthroplasty. She is doing well overall. She do es have some moderate soft-tissue swelling secondary to her INR level being elevated. She denies an y fevers, chills. There is no erythema or warmth. She is progressing with physical therapy. She i s using a front-wheeled walker to ambulate. She presents today for her first postoperative evaluati on. PHYSICAL EXAMINATION: On exam today, she is alert and oriented x4 and in no acute distress. She do es have 3+ soft-tissue swelling throughout the left lower extremity. Her incision otherwise is yareli n, dry and intact. There a trace amount of erythema. There is no pus or drainage noted. Funmi a re in place. Homans sign is negative. Compartments are otherwise soft. She is neurovascularly int act distally. IMAGING: X-rays of the left knee were obtained today and reviewed by me. They show good fixation o f the tibial and femoral components. There is no fracture or dislocation identified. ASSESSMENT: Ten days status post left total knee arthroplasty. DISCUSSION: The patient's funmi were removed today, and Steri-Strips were applied. Given the mil d erythema, we will start her on Keflex and Bactrim for 7 days. Although a DVT is unlikely, we will obtain a stat Doppler to rule out a DVT. In lieu of it being negative, she will continue physical therapy with home health and transition to an outpatient physical therapy program. We will see her back in 4 weeks for re-evaluation. She is to call the office if she has any concerns or adverse yazmin nt. Dictated By: ZANE DE LA PAZ for ZULEMA ALONSO/LUIS Conf#: [id number] DID#: [id number]
== END | disposition home or self-care (01) ==
LOC: HKI 10:03
PROVIDERS: ATTEND Orthopaedic Surgery
DX: Z47.1 Aftercare following joint replacement surgery (principal); Z96.652 Presence of left artificial knee joint

== ENCOUNTER → 2016-06-28 | Outpatient (CLI) | payer MEDICARE | END | disposition home or self-care (01) | LOC: HKI 10:05 | PROVIDERS: ATTEND Orthopaedic Surgery | DX: Z47.1 Aftercare following joint replacement surgery (principal); M17.12 Unilateral primary osteoarthritis, left knee; Z96.652 Presence of left artificial knee joint ==

== ENCOUNTER → 2016-07-12 | Outpatient (CLI) | END | disposition home or self-care (01) | DX: Z47.1 Aftercare following joint replacement surgery (principal); M17.12 Unilateral primary osteoarthritis, left knee; Z96.652 Presence of left artificial knee joint ==

== ENCOUNTER → 2016-08-23 | Outpatient (CLI) | payer MEDICARE ==
--- NOTE | 2016-08-23 15:22 | RADRPT ---
PROCEDURE: Left knee radiographs. CLINICAL INDICATION: Left knee pain. Postop. TECHNIQUE: Three views. Weight bearing. Frontal, lateral, and patellar view. COMPARISON: 06/21/2016. FINDINGS: There is no fracture or dislocation. Anterior skin marisol have been removed. There is a total left knee arthroplasty which appears satisfactory. There is no lytic or blastic lesion. There is a small joint effusion. IMPRESSION: 1. Anterior skin marisol removed. 2. Small joint effusion. 3. Postoperative appearance of the left knee. RPTAT: QQ .Julius Malave MD, MD Date Time Electronically viewed and signed by .Julius Malave MD, on 08/23/2016 15:22 .R/
== END | disposition home or self-care (01) ==
LOC: HKI 10:45
PROVIDERS: ATTEND Orthopaedic Surgery
DX: Z47.1 Aftercare following joint replacement surgery (principal); M17.12 Unilateral primary osteoarthritis, left knee; Z96.652 Presence of left artificial knee joint